=== PATIENT | male | born 1980 ===

== ENCOUNTER 2025-01-05 20:25 | Emergency (ER) | payer BC, SELFPAY ==
[2025-01-05 20:29] VITALS: PULSE 96; RESP 24; TEMP 37.1; O2SAT 97; BMI 28.4
[2025-01-05] MEDS: IPRAT-ALBUT 0.5-2.5 MG/3 ML NEB 1 NEB IH (21:00)
--- NOTE | 2025-01-05 21:22 | CRLHL7_ITS ---
For Patients: As a result of the Cures Act, medical imaging exams and procedure reports are released immediately into your electronic medical record. You may view this report before your referring provider. If you have questions, please contact your health care provider. INDICATION: Chest pain, asthma, recent viral infection TECHNIQUE: Chest radiograph 2 views COMPARISON: None FINDINGS: Mediastinum: The mediastinum is normal in appearance. The heart silhouette is normal in size and morphology. Lung: A linear opacity seen in the right lower lung zone which may represent a region of discoid atelectasis. No sign of pleural effusion seen. No pneumothorax is identified. Bone and Soft tissue: Unremarkable for age. IMPRESSION: 1. A linear opacity seen in the right lower lung zone which may represent a region of discoid atelectasis. Follow up radiograph in 1-2 months is recommended to document resolution. Dictated by Sundeep Gracia MD @ 01/05/2025 10:10:35 PM Dictated by: Sundeep Gracia MD @ 01/05/2025 22:10:39 (Electronically Signed)
--- NOTE | 2025-01-05 21:37 | ED.ASTHMA ---
HPI - Asthma General Date Seen: 01/05/25 Chief Complaint: Asthma Stated Complaint: asthma, fainted Time Seen by Provider: 01/05/25 20:40 Source: patient Mode of arrival: ambulatory Limitations: no limitations History of Present Illness HPI Narrative: Patient is a 44-year-old male presenting for an episode shortness of breath. He states he has a history of asthma tends get asthma exasperation twice a year. States he will have issues with his asthma for volume we get those points. Says he was driving down the road today was feeling short of breath and he states his vision went white for only a second at most. While driving home he felt these symptoms happened 2 more times. Went home to use his inhalers. Does not use a spacer with his inhalers. States in the past he has felt they helped but did not help this time. He continued to feel short of breath. Use Singulair and albuterol rescue inhalers. Typically also uses his nebulizing machine but that is in storage currently. States he has been having asthma symptoms now for about 2 and half weeks. Does admit that 3 weeks ago he was having some viral symptoms. Although symptoms went away other than the continued shortness of breath. Denies fevers, chills, weakness, numbness, headache, abdominal pain. Does have some mild left-sided chest pain. No history of heart disease. Related Data Home Medications ?Medication ?Instructions ?Recorded ?Confirmed albuterol sulfate 90 mcg/actuation 1 inh inhalation Q6H 01/05/25 01/05/25 breath activated powder inhaler montelukast 10 mg tablet 10 mg PO DAILY 01/05/25 01/05/25 (Singulair) Allergies Allergy/AdvReac Type Severity Reaction Status Date / Time Opioids - Morphine Analogues AdvReac Mild Verified 01/05/25 20:35 Review of Systems Status of ROS Reports: 10 or more systems reviewed and unremarkable except as noted in History and below PFSH PFSH Social History Non-prescribed substance use: denies use Exam Narrative: Exam Narrative: Const: Well-nourished, Well-developed, in mild distress Eyes: PERRL, no conjunctival injection, and symmetrical lids HENT: Atraumatic external nose and ears. Moist mucous membranes. Neck: Symmetric, trachea midline, No thyromegaly. CVS: RRR, No murmurs or gallops. Peripheral pulses 2+ and equal in all extremities RESP: Unlabored respiratory effort. Mild expiratory wheezes GI: Nontender/Nondistended, No rebound or guarding. MSK:Extremities w/o deformity, Normal Active ROM, nontender to palpation of chest Skin: Warm, Dry. No rashes or lesions. Neuro: Normal Muscle tone, No focal neurological deficits. Psych: Awake, Alert, & Oriented x3. Appropriate mood and affect. Const: Vital Signs, click to edit/add: Vital Signs - 24 hr 01/05/25 20:29 Temperature 98.7 F Pulse Rate [Pulse Oximeter] 96 Respiratory Rate 24 Pulse Oximetry 97 Oxygen Delivery Me thod Room Air Course Vital Signs Vital signs: Initial Vital Signs Temperature 98.7 F 01/05/25 20:29 Temperature Source Temporal Artery Scan 01/05/25 20:29 Pulse Rate 96 01/05/25 20:29 Pulse Rhythm Regular 01/05/25 20:29 Respiratory Rate 24 01/05/25 20:29 Pulse Oximetry 97 01/05/25 20:29 Oxygen Delivery Method Room Air 01/05/25 20:29 Vital Signs Temperature 98.7 F 01/05/25 20:29 Pulse Rate 96 01/05/25 20:29 Respiratory Rate 24 01/05/25 20:29 Pulse Oximetry 97 01/05/25 20:29 Oxygen Delivery Method Room Air 01/05/25 20:29 Temperature 98.7 F 01/05/25 20:29 Pulse Rate 96 01/05/25 20:29 Respiratory Rate 24 01/05/25 20:29 Pulse Oximetry 97 01/05/25 20:29 Oxygen Delivery Method Room Air 01/05/25 20:29 Medications Administered Medications: Discontinued Medications Generic Name Dose Route Start Last Admin Trade Name Freq PRN Reason Stop Dose Admin Albuterol 2.5 mg 01/05/25 21:22 01/05/25 22:40 Albuterol Sulfate 2.5 Mg/3 Ml Vial[facility] 01/05/25 21:23 2.5 mg ONCE ONE Administration Albuterol/Ipratropium 1 [facility] 01/05/25 21:40 01/05/25 21:00 Iprat-Albut 0.5-2.5 Mg/3 Ml [facility] 01/05/25 21:41 1 neb ONCE ONE Administration MDM - Asthma MDM Narrative Medical decision making narrative: Patient is a 44-year-old male presenting for shortness of breath and chest pain. This does seem likely his asthma exacerbation. Nursing staff saw the patient in triage and stated he was wheezy. They gave him a DuoNeb treatment. This was okayed by me. By time I saw the patient his wheezing has improved he states he is feeling little bit better. I think this is unlikely to be a PE, aortic dissection, aortic aneurysm. He is having some mild chest pains are will do an EKG and troponin to make sure there is no associated myocarditis from his recent viral infection. Will do chest x-ray to look for signs of pneumonia. Will also order BMP, CBC, magnesium. Patient was given another dose of albuterol. Patient was feeling better after his treatment. EKG shows no acute concerning abnormalities. Lab work shows no acute concerning abnormalities. Chest x-ray shows some atelectasis. No signs of pneumonia. He is doing well at this time. Will be discharged with prednisone and nebulizer albuterol. Will also be given a script for a albuterol spacer. He is safe for discharge and agrees with this plan. He does state he already has follow-up this upcoming Thursday with his primary care provider Lab Data Labs: Lab Results 01/05/25 Range/Units 21:33 WBC 6.82 (4.50-11.00) K/uL RBC 5.04 (4.30-5.90) m/uL Hgb 15.4 (13.5-17.5) gm/dL Hct 46.0 (37.0-53.0) % MCV 91 (80-100) fL MCH 31 (26-34) pg MCHC 34 (32-36) gm/dL RDW Coeff of Cari 12.8 (11.5-15.5) % Plt Count 301 (140-440) K/uL Neut % (Auto) 40.8 L (42.0-72.0) % Lymph % (Auto) 34.5 (20-44) % Mcculloch % (Auto) 13.2 H (0.0-11.0) % Eos % (Auto) 9.8 H (0.0-7.0) % Baso % (Auto) 1.0 (0.0-3.0) % Neut # (Auto) 2.80 (1.7-7.0) K/uL Lymph # (Auto) 2.35 (0.90-2.90) K/uL Mcculloch # (Auto) 0.90 (0.00-0.90) K/UL Eos # (Auto) 0.70 H (0.00-0.50) K/uL Baso # (Auto) 0.07 (0.00-0.30) K/uL Abs Immat Gran (auto) 0.05 (0.00-0.30) K/uL Imm/Tot Granulo (auto) 0.7 % Sodium 141 (135-149) mmol/L Potassium 4.0 (3.6-5.1) mmol/L Chloride 105 (96-114) mmol/L Carbon Dioxide 29 (20-32) mmol/L Anion Gap 7 (7-15) mEq/L BUN 18 (5-24) mg/dL Creatinine 1.1 (0.5-1.5) mg/dL Estimated Creat Clear 98.87 Estimated GFR 86 ml/min Glucose 102 (60-115) mg/dL Calcium 9.2 (8.4-10.6) mg/dL Magnesium 2.0 (1.5-2.6) mg/dL Troponin I < 0.01 (0.01-0.04) ng/mL SARS-CoV-2 (PCR) Negative SARS-CoV-2 (Negative) Influenza Type A (PCR) Negative PCR FLU A (Negative) Influenza Type B (PCR) Negative PCR FLU B (Negative) RSV (PCR) Negative PCR RSV (Negative) Imaging Data Chest x-ray: Radiologist's impression: 1. A linear opacity seen in the right lower lung zone which may represent a region of discoid atelectasis. Follow up radiograph in 1-2 months is recommended to document resolution. Dictated by Sundeep Gracia MD @ 01/05/2025 10:10:35 PM ECG Data Attestation: I personally reviewed and interpreted this ECG as follows: Prior ECG tracings: not available for review Interpretation: Normal sinus rhythm with a rate of 81 beats per minute, normal intervals, normal axis, no ST or T-wave abnormalities. Discharge Plan Discharge Clinical Impression: Asthma with acute exacerbation Qualifiers: Asthma severity: unspecified severity Asthma persistence: unspecified Qualified Code(s): J45.901 - Unspecified asthma with (acute) exacerbation Patient Disposition: Home, Self-Care Condition: Improved Instructions: Asthma (DC) Additional Instructions: Use the spacer whenever you use your albuterol inhaler. Your chest x-ray showed was notice atelectasis. This is some collapsing of his very small airways and is relatively common to see. This is not of emergent issue but they do recommend repeat x-ray in 1-2 months to document resolution. Take the albuterol as needed for your shortness of breath and use the prednisone daily for the next 5 days. Return to emergency department for new or worsening symptoms. Prescriptions: No Action montelukast [Singulair] 10 mg tablet 10 mg PO DAILY albuterol sulfate 90 mcg/actuation aerosol powdr breath activated 1 inh inhalation Q6H Follow Up/Referrals: Provider,Not a Local [Primary Care Provider, Family Practice] Stand Alone Forms: [facility] Info Instructions
--- OUTSIDE RECORDS SUMMARY | 2025-01-05 21:49 | XMS_ITS | Clinical Summary ---
Author Organization [facility] Address [address] [place] [id number] Care Team Providers Care Carbon Capture Power Plant Engineer Name Role Phone Leslie Colin RN Unavailable [phone] Urszula Arriola MD Unavailable [phone] Terri Carmona Primary Care Provider [phone] Allergies Active Allergy Reactions Criticality Noted Date Comments Oxycodone-Acetaminophen Dizziness 03/07/2020 Medications cholecalciferol (Vitamin D-3) 2,000 unit capsuleIndicatio ns:Vitamin D deficiency Take 1 Capsule (2,000 units) by mouth once daily. 90 Capsule 3 2 5:04 PM CDT 10/03/19 22 Active cetirizine (ZYRTEC) 10 mg tabletIndication s:Seasonal allergic rhinitis due to pollen Take 1 Tablet (10 mg) by mouth once daily. 90 Tablet 3 3 3:20 PM CDT 02/18/20 23 Active LORazepam (ATIVAN) 0.5 mg tabIndications:P anic attack Take 1 Tablet (0.5 mg) by mouth every 6 hours if needed for Anxiety. 15 Tablet 4 2:05 PM RHYTHMIC GYMNASTICS COACH 08/13/19 24 Active clobetasol cream 0.05% (TEMOVATE) 0.05 % creamIndications :Psoriasis Apply a thin layer of medication to the scalp twice daily as needed. 60 g 2 4 9:49 AM CDT 09/16/19 24 Active sennosides-docus ate (SENOKOT S) (8.6-50 mg) tabletIndication s:Inguinal hernia of right side without obstruction or gangrene Take 1 Tablet by mouth 2 times daily if needed for Constipation. 20 Tablet 4 3:57 PM CDT 12/08/19 24 Active traMADoL (ULTRAM) 50 mg tabletIndication s:Inguinal hernia of right side without obstruction or gangrene Take 1 Tablet (50 mg) by mouth four times daily. 5 Tablet 4 3:57 PM CDT 12/08/19 24 Active betamethasone dipropionate 0.05 % ointmentIndicati ons:Psoriasis Apply topically to affected area(s) two times daily. Apply a thick layer of medication to the scalp twice daily as needed. 45 g 8 07/28/19 25 Active ixekizumab 80 mg/mL atInIndications: Psoriasis Loading dose. Inject subcutaneously 160 mg (2 pens) at week 0, then 80 mg (1 pen) at week 2, 4, 6, 8, 10, and 12. rotate sites. refrigerate. 9 mL 08/12/19 25 Active ixekizumab 80 mg/mL atInIndications: Psoriasis Maintenance dose. Inject subcutaneously 80 mg (1 pen) every 4 weeks starting week 16. 2 mL 6 08/12/19 25 Active albuterol HFA (Ventolin HFA) 90 mcg/actuation inhalerIndicatio ns:Mild intermittent asthma without complication (HC) Inhale 1-2 Puffs by mouth every 4 hours if needed for Shortness Of Breath, Shortness of Breath 1st choice or Wheezing. 18 g 3 5 11:46 AM RHYTHMIC GYMNASTICS COACH 09/06/19 25 Active montelukast (SINGULAIR) 10 mg tabletIndication s:Seasonal allergic rhinitis due to pollen Take 1 Tablet (10 mg) by mouth at bedtime. 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 [address] [place] [address] Jodee Helton MD Questions from Last 3 Months Immunizations Immunization Administration Dates Next Due DTaP 12/05/2011 Hepatitis B (Adult) 03/07/2020,03/03/2013 Influenza Virus, Unspecified 06/12/2016,06/04/20 15,06/19/2014,04/27/2013 Influenza, IIV4 03/07/2020,07/13/2017,06/12/2016 ,05/19/2014 Influenza, IIV4 (=>6mos) MDV 06/04/2015 Tdap 07/25/2017 Family History Medical History Relation Name Comments Diabetes Father Cancer Mother Colonic polyp Paternal Grandfather Diabetes Paternal Grandmother Cancer-breast No Family History Cancer-colon No Family History Cancer-ovarian No Family History Cancer-prostate No Family History Relation Name Status Comments Father Mother Paternal Grandfather Paternal Grandmother Social History Tobacco Use Types Packs/Day Years Used Date Smoking Tobacco: Never Smokeless Tobacco: Never Alcohol Use Standard Drinks/Week Comments Not Currently 0 (1 standard drink = 0.6 oz pure alcohol) have not drank in 6 monthes last time was a beer PHQ-2 Answer Date Recorded PHQ-2 TOTAL SCORE 4 11/19/2023 Social Connections Answer Date Recorded Frequency of Communication with Friends and Fami ly 0 02/17/2023 Financial Resource Strain Answer Date R ecorded Difficulty of Paying Living Expenses 2 02/17/2023 Difficulty of Paying Living Expenses 1 02/17/2023 Food Insecurity Answer Date Recorded Worried About Running Out of Food in the Last Ye ar 1 02/17/2023 Transportation Needs Answer Date Record ed Lack of Transportation (Medical) 1 02/17/2023 Housing Stability Answer Date Recorded Unable to Pay for Housing in the Last Year 1 02/17/2023 Interpersonal Safety Answer Date Record ed Are you being hit, kicked, p ushed or yelled at (see row info)? No 08/03/2023 Interpersonal Safety Abuse 12 - 18 Not on file 08/03/2023 Interpersonal Safety Ambulatory Vulnerability No t on file 08/03/2023 Sex and Gender Information Value Date Recorded Sex Assigned at Not on file Legal Sex Male 12:33 PM CDT Gender Identity Not on file Sexual Orientation Not on file Obstetrics History Last Filed Vital Signs Vital Sign Reading Time Taken Comments Blood Pressure 100/68 12/21/2023 9:08 AM CDT Pulse 72 12/21/2023 9:08 AM CDT Temperature 36.4 C (97.5 F) 12/08/2023 12:30 PM CDT Respiratory Rate 16 12/08/2023 3:15 PM CDT Oxygen Saturation 98% 12/21/2023 9:08 AM CDT Inhaled Oxygen Concentration - - Weight 87.9 kg (193 lb 11.2 oz) 12/21/2023 9:08 AM CDT Height 185.4 cm (6' 1) 12/08/2023 9:52 AM CDT Body Mass Index 25.56 12/08/2023 9:52 AM CDT Plan of Treatment Upcoming Encounters Date Type Department Care Team (Late st Contact Info) Description 01/10/2025 12:50 PM CDT Office Visit [facility] [address] [place] [address] Terri Carmona PA [address] [place] [address] Health Maintenance Due Date Last Done Comments COVID-19 vaccine series (#1) 12/18/1987 Hepatitis B series for 19+ (3 of 3 - 19+ 3-dose series) 05/02/2020 03/07/2020, 03/03/2013 BMI (ht and wt on same day) for age 18+ 11/22/2024 11/23/2023, 09/30/2021, 07/30/2021, Additional history exists Depression screening for age 12+ 11/22/2024 11/23/2023, 11/16/2023, 08/20/2023, Additional history exists Influenza Vaccine (#1) 2025 , 07/13/2017, 06/12/2016, Additional history exists Lipids for age 35-44 09/30/2026 09/30/2021, 03/07/20 Tetanus booster 07/25/2027 07/25/2017 HIV for age 15-65 Completed 05/03/2021, 04/18/2020 Hepatitis C screening for age 18-79 Completed 06/10/2024, 05/03/2021, 04/18/2020 Pneumococcal series for age 6-49 Aged Out No longer eligible based on patient's age to complete this topic Medical Devices Implanted Type Area R D Internship Device Identifier Shelf Expiration Date Model / Serial / Lot Mesh Inguinal Rt [id number] 3-D Max Mid Xlg - [id number] Implanted:Qty: 1 on 12/08/2023 by Alexandro Schneider MD at [facility] Right: Inguinal [employer] 08/02/2028 [id number] / / [id number] Procedures Procedure Name Priority Date/Time Associated Diagnosis Comments ANTI HCV Routine 06/10/2024 4:41 PM RHYTHMIC GYMNASTICS COACH Psoriasis LIPID PANEL W REFLEX MEASURED LDL Routine 09/30/2021 8:41 AM CDT Screening cholesterol level ANTI HIV 1/2 Routine 05/03/2021 8:55 AM CDT Psoriasis from Last 3 Months or Most Recently Relevant to Health Maintenance Results * ANTI HCV (06/10/2024 4:41 PM RHYTHMIC GYMNASTICS COACH) HEPATITIS C ANTIBODY NON-REACTI VE NON-REACT PATT [facility] Comment: HCV antibody was non-reactive. There is no laboratory evidence of HCV infection. In most cases, no further action is required. However, if recent HCV exposure is suspected, a test for HCV RNA (test code 08497) is suggested. For additional information please refer to http://education.Wellcore/faq/QNE30n4 (This link is being provided for informational/ educational purposes only.) Blood BLOOD SPECIMEN / Unknown 06/10/2024 4:41 PM RHYTHMIC GYMNASTICS COACH 06/10/2024 4:41 PM RHYTHMIC GYMNASTICS COACH Narrative [facility] - 06/12/2024 7:39 AM RHYTHMIC GYMNASTICS COACH MULTIPLE TESTING PRIORITIES; ROUTINE TESTING TO FOLLOW. Jodee Helton MD SEND OUTS Final Result [facility] [address] [place] [address], [facility] [address] [place] [address] * (ABNORMAL) LIPID PANEL W REFLEX MEASURED LDL (09/30/2021 8:41 AM CDT) CHOLESTEROL,TOTAL 211(H) 100 - 199 mg/dL 09/30/2021 9:12 AM [facility] TRIGLYCERIDES 81 <150 mg/dL 09/30/2021 9:12 AM [facility] HDL CHOLESTEROL 57 >40 mg/dL 9:12 AM [facility] NON-HDL CHOLESTEROL 154(H) <145 mg/dl 09/30/2021 9:12 AM [facility] CHOL/HDL RATIO 3.70 <4.50 09/30/2021 9:12 AM [facility] LDL CHOLESTEROL 138(H) <=130 mg/dL 09/30/2021 9:12 AM [facility] VLDL CHOLESTEROL 16 <=30 mg/dL 09/30/2021 9:12 AM [facility] PROVIDER ORDERED STATUS RANDOM 09/30/2021 9:12 AM [facility] Blood BLOOD SPECIMEN / Unknown Venipuncture / Unknown 09/30/2021 8:41 AM CDT 09/30/2021 8:43 AM CDT Terri PAINTER CHEMISTRY Final Resu lt [facility] [address] [place] [address] * ANTI HIV 1/2 (05/03/2021 8:55 AM CDT) HIV-1/HIV-2 ANTIBODY Non-Reacti ve Non-Reacti ve 05/03/2021 3:21 PM CDT [facility] Comment:HIV-1 p24 and HIV-1/ HIV-2 Ab not detected. Blood BLOOD SPECIMEN / Unknown Venipuncture / Unknown 05/03/2021 8:55 AM CDT 05/03/2021 8:56 AM CDT us Sada PAINTER SEND OUTS Final Result [facility] [address] [place] [address], [place] from Last 3 Months or Most Recently Relevant to Health Maintenance Insurance [facility] x5 (Home) [phone] x5 (Work) ATTN [employer] PAYABLE [address] [address] [place] [address] Advance Directives * Full Code (Latest Code Status on File) Date Activated Date Inactivated Comments 12/08/2023 9:48 AM 12/08/2023 5:55 PM Question Answer Comments Code Status Discussion: Unable to Assess Preferences, Provider to review later Care Teams Carbon Capture Power Plant Engineer Relationship Specialty Start Date End Date Terri Carmona PA [address] [place] [address] PCP - General Physician Body Mechanic Apprentice 02/17/23 Leslie Colin, GABRIELE [address] [place] [address] Nurse Navigator - Oncology Registered Nurse 07/16/21 Urszula Arriola MD [address] [place] [address] Surgery - General 07/16/21
--- OUTSIDE RECORDS SUMMARY | 2025-01-05 21:49 | XMS_ITS | Clinical Summary ---
Author Organization [facility] Address [address] [place] [address] Care Team Providers [facility] Name Role Phone Elsewhere, Pcp Primary Care Provider Unavailabl e Source Comments Patient records contain information from all sites at [facility]. For routine questions regarding patient records, call [phone] during business hours, M-F 8:00 AM - 5:00 PM Central Time. Record requests for emergency care only can be directed to [phone] at any time.[facility] Allergies Active Allergy Reactions Criticality Noted Date Comments Morphine GI intolerance 09/05/2022 N/V Medications albuterol (for_ACCUNEB) 2.5 mg /3 mL nebulizer solution Take 3 mL by nebulization 4 (four) times a day as needed. 4 Active albuterol 90 mcg/actuation inhaler Inhale 2 puffs every 4 (four) hours as needed. 7 Active montelukast (SINGULAIR) 10 mg tablet Take 1 tablet (10 mg total) by mouth every evening. 90 tablet 3 8 Active cetirizine (ZyrTEC) 10 mg tablet Take 1 tablet (10 mg total) by mouth daily. 90 tablet 3 8 Active betamethasone dipropionate (for_DIPROLENE) 0.05 % ointment Apply topically 2 daily for 1-2 weeks. 45 g 1 8 Active promethazine (PHENERGAN) 25 mg tablet Take 1 tablet (25 mg total) by mouth every 6 (six) hours as needed for nausea or vomiting. 30 tablet 09/05/2022 8:09 PM FIELD MANAGER 3 Active Additional Information Patient not taking.Reported on 11/11/2023 ketorolac (TORADOL) 10 mg tablet Take 1 tablet (10 mg total) by mouth every 6 (six) hours as needed for pain. 20 tablet 09/05/2022 8:09 PM FIELD MANAGER 3 Active Additional Information Patient not taking.Reported on 11/11/2023 LORazepam (ATIVAN) 0.5 mg tablet Take 0.5 mg by mouth every 6 (six) hours as needed. 4 Active clobetasoL (TEMOVATE) 0.05 % cream 1 Application. 4 Active cholecalciferol (VITAMIN D3) 50 mcg (2,000 Unit) capsule Take 1 capsule by mouth daily. 2 Active baclofen (LioresaL) 10 mg tablet 10 mg. 4 Active Active Problems Problem Noted Date Diagnosed Date Post Operative Nausea/Vomiting 09/02/2022 Rhinitis Allergic Due To Outdoor Pollen 10/04/19 22 Dysthymia 12/22/2013 Overview (11/25/2016): Dysthymia Asthma NOS 12/08/2013 Overview (11/25/2016): Asthma Immunizations Immunization Administration Dates Next Due DTaP (Infanrix, [employer]) 12/05/2011 HepB (discontinued) adolesce nt/high risk 03/03/2013 Influenza, Unspecified 06/12/2016,2014,06/19/2014,2012 Tdap 07/25/2017 influenza vaccine quad (FLUZONE/FLUARIX) (6 months and older)(PF) 07/13/2017,05/19/2014 Family History Medical History Relation Name Comments Depression Father Diabetes Father Heart attack Uncle Relation Name Status Comments Father Uncle Social History Tobacco Use Types Packs/Day Years Used Date Smoking Tobacco: Former Smokeless Tobacco: Never Alcohol Use Standard Drinks/Week Comments Never 0 (1 standard drink = 0.6 oz pur e alcohol) Sex and Gender Information Value Date Recorded Sex Assigned at Not on file Legal Sex Male 5:34 PM FIELD MANAGER Gender Identity Male 09/02/2022 12:32 PM FIELD MANAGER Sexual Orientation Not on file Last Filed Vital Signs Vital Sign Reading Time Taken Comments Blood Pressure 127/85 09/05/2022 6:47 PM FIELD MANAGER Pulse 76 09/05/2022 7:02 PM FIELD MANAGER Temperature 36.5 C (97.7 F) 09/05/2022 5:25 PM FIELD MANAGER Respiratory Rate 13 09/05/2022 7:02 PM FIELD MANAGER Oxygen Saturation 99% 09/05/2022 7:02 PM FIELD MANAGER Inhaled Oxygen Concentration - - Weight 86.6 kg (190 lb 14.7 oz) 023 12:17 PM FIELD MANAGER Height 185.4 cm (6' 1) 11/10/2023 3:24 PM CDT Body Mass Index 24.5 09/02/2022 12:53 PM FIELD MANAGER Plan of Treatment Health Maintenance Due Date Last Done Comments HIV Screening 1982 Hepatitis C Screening 1982 Tobacco Cessation counseling 1982 COVID-19 Vaccine (#1) 12/18/1987 Pneumococcal vaccine (0-49 years) (1 of 2 - PCV) 2001 HPV Vaccines (1 - Risk 3-dose SCDM series) 2009 Asthma Action Plan 2016 03/13/2016 Asthma Control Test Questionnaire 2016 03/13/2016 Asthma Management/Exacerbation Questionnaire (AMQ/AEQ) 2016 Hepatitis B Vaccines (3 of 3 - 19+ 3-dose series) 05/02/2020 03/07/2020, 03/03/2013 Depression Screening (Annual PHQ-2) 07/06/2024 Influenza Vaccine (#1) 2025 , 07/13/2017, 06/12/2016, Additional history exists Lipid (Cholesterol) Screening 09/30/2026 09/30/2021, 03/07/2020, 01/31/2017 DTaP,Tdap,and Td Vaccines (3 - Td or Tdap) 07/25/2027 07/25/2017, 12/05/2011 Hepatitis B Screening Discontinued 06/10/2024 , 05/03/2021, 04/18/2020 IPV Vaccines Aged Out No longer eligi ble based on patient's age to complete this topic Procedures Procedure Name Priority Date/Time Associated Diagnosis Comments LIPID PANEL, S Routine 01/31/2017 8:35 AM CDT from Last 3 Months or Most Recently Relevant to Health Maintenance Results * (ABNORMAL) Lipid Panel (01/31/2017 8:35 AM CDT) Cholesterol, Total 205(H) <=199 MGDL POWERCHART Comment: 2014 National Lipid Association recommendations for Total Cholesterol in adults ages 18 and up: Desirable <200 mg/dL Borderline high 200-239 mg/dL High 240 mg/dL 2014 National Lipid Association recommendations for Total Cholesterol in children ages 2 to 17. Acceptable <170 mg/dL Borderline High 170-199 mg/dL High 200 mg/dL HX HDL 63 >=40 MGDL POWERCHART Comment: 2014 National Lipid Association recommendations for HDL-C in adults ages 18 and up: Low <40 mg/dL (Men) Low <50 mg/dL (Women) 2014 National Lipid Association recommendations for HDL-C in children ages 2 to 17. Low <40 mg/dL Borderline Low 40-45 mg/dL Acceptable >45 mg/dL Triglycerides 87 <=149 MGDL POWERCHART Comment: 2014 National Lipid Association recommendations for Triglycerides in adults ages 18 and up: Normal <150 mg/dL Borderline High 150-199 mg/dL High 200-499 mg/dL Very High 500 mg/dL 2014 National Lipid Association recommendations for Triglycerides in children ages 2 to 9. Acceptable <75 mg/dL Borderline High 75-99 mg/dL High 100 mg/dL 2014 National Lipid Association recommendations for Triglycerides in children ages 10 to 17. Acceptable <90 mg/dL Borderline High 90-129 mg/dL High 130 mg/dL Trigs >400mg/dL: Triglycerides >400 mg/dL. Calculated LDL cholesterol is not valid. Non-HDL cholesterol may be used for risk assessment when triglycerides are >400mg/dL. Calculated LDL 125 <=129 MGDL POWERCHART Comment: 2014 National Lipid Association recommendations for LDL-C in adults ages 18 and up: Desirable <100 mg/dL Above desirable 100-129 mg/dL Borderline high 130-159 mg/dL High 160-189 mg/dL Very High 190 mg/dL 2014 National Lipid Association recommendations for LDL-C in children ages 2 to 17. Acceptable <110 mg/dL Borderline High 110-129mg/dL High 130 mg/dL LDL-C >190mg/dL: The markedly elevated LDL level is suggestive of a genetic condition such as familial hypercholesterolemia(FH) or familial defective apolipoprotein B-100 (FDB). Molecular genetic testing for FH and FDB is available through [facility]: FH/ADH Genetic Reflex Panel (test ADHP). Acquired (non-genetic) causes of markedly increased LDL cholesterol include cholestatic liver disease due to the presence of LpX. If a genetic form of hypercholesterolemia is suspected, family studies including biochemical testing for lipids (total cholesterol,triglycerides, LDL cholesterol and HDL cholesterol) are recommended. Please contact the laboratory at or the on-line test catalog at [facility] for information about how to order these tests or to speak with a genetic counselor. Further interpretation would require clinical information. Total Cholesterol/HDL Ratio 3 POWERCHART Blood 01/31/2017 8:35 AM CDT Alexus Cazares APRN, C.N.P., D.N.P. LAB BLOOD A DD-ON Final Result POWERCHART NA from Last 3 Months or Most Recently Relevant to Health Maintenance Insurance [facility] Care Teams [facility] Relationship Specialty Start Date End Date Elsewhere, Pcp PCP - General 07/25/19
[2025-01-05 21:50] LABS: Hematocrit 46.0 % (37.0-53.0); Hemoglobin* 15.4 gm/dL (13.5-17.5); Immature Granulocytes Abs Auto 0.05 K/uL (0.00-0.30); Immature Granulocytes Pct Auto 0.7 %; Lymphocytes Absolute Auto 2.35 K/uL (0.90-2.90); Mean Corpuscular HGB Conc 34 gm/dL (32-36); Mean Corpuscular Hemoglobin 31 pg (26-34); Mean Corpuscular Volume 91 fL (80-100); RDW Coefficient of Variation % 12.8 % (11.5-15.5); Red Blood Count 5.04 m/uL (4.30-5.90); White Blood Count* 6.82 K/uL (4.50-11.00)
[2025-01-05 22:09] LABS: Chloride* 105 mmol/L (96-114); Potassium* 4.0 mmol/L (3.6-5.1); Sodium* 141 mmol/L (135-149)
[2025-01-05 22:12] LABS: Anion Gap 7 mEq/L (7-15); Blood Urea Nitrogen* 18 mg/dL (5-24); Calcium* 9.2 mg/dL (8.4-10.6); Carbon Dioxide* 29 mmol/L (20-32); Creatinine* 1.1 mg/dL (0.5-1.5); Est. Creatinine Clearance* 98.87; Estimated Glomerular Filt Rate 86 ml/min; Glucose* 102 mg/dL (60-115); Slide Review Reflex No
[2025-01-05 22:32] LABS: PCR FLU A Negative PCR FLU A (Negative); PCR FLU B Negative PCR FLU B (Negative); PCR RSV Negative PCR RSV (Negative); SARS PCR* Negative SARS-CoV-2 (Negative)
[2025-01-05] MEDS: ALBUTEROL SULFATE 2.5 MG/3 ML VIAL.NEB NEB (22:40)
[2025-01-05 23:01] VITALS: BP 113/78
== END 2025-01-05 23:12 | disposition home or self-care (01) ==
PROVIDERS: Emergency Provider Student in an Organized Health Care Education/Training Program
DX: J45.901 Unspecified asthma with (acute) exacerbation (principal)
CPT/HCPCS: 36415; 71046; 80048; 83735; 84484; 85025; 87631; 93005; 94640; 99284